=== PATIENT | female | born 1985 | race Caucasian/White ===

== ENCOUNTER 2023-05-15 08:06 | Inpatient (IN) | payer OTHER ==
[2023-05-14 12:53] LABS: Hematocrit 34.2 % (34.9-44.5); Hemoglobin 11.5 g/dL (12.0-15.5); Platelet Count 220 10x3/uL (150-450)
[2023-05-14 13:27] LABS: Syphilis Antibody Nonreactive (Nonreactive); Syphilis Antibody Index 0.08 S/CO (<1.00 Non-Reactive)
[2023-05-14 13:29] LABS: HBSAg Index 0.22 S/CO (0-0.99); Hep B Surf Ag Non-Reactive S/CO (NonReactive)
[2023-05-15] MEDS ORDERED: Oxytocin 30 units/NS 500 ML 500 ML IV SCH (08:27)
[2023-05-15] MEDS ORDERED: Famotidine/PF 20 mg/2ml Vial SLOW IVP PRN (08:27)
[2023-05-15] MEDS ORDERED: Lactated Ringer's 1,000 ML IV SCH (08:27)
[2023-05-15] MEDS ORDERED: Carboprost 250 MCG/ML AMP IM PRN (08:27)
[2023-05-15] MEDS ORDERED: Diphenoxylate HCl/Atropine Tablet PO PRN ×2 (08:27)
[2023-05-15] MEDS ORDERED: Methylergonovine 0.2 MG/ML VIAL IM PRN (08:27)
[2023-05-15] MEDS ORDERED: hydrALAZINE 20 MG/ML VIAL SLOW IVP PRN ×2 (08:27→09:48)
[2023-05-15] MEDS ORDERED: CEFAZOLIN 2 GM in Sodium Chloride 0.9% 100 ML IVPB SCH (08:27)
[2023-05-15] MEDS ORDERED: Promethazine HCl 25 MG/ML VIAL IM PRN ×2 (08:27→10:19)
[2023-05-15] MEDS ORDERED: Bicitra 30 ML UDCUP PO PRN (08:27)
[2023-05-15] MEDS ORDERED: Misoprostol 200 MCG TAB PR PRN (08:27)
[2023-05-15] MEDS ORDERED: Ondansetron PF 4 MG/2 ML Vial IVP PRN ×3 (08:27→10:19)
[2023-05-15 08:52] VITALS: BMI 28.5
[2023-05-15] MEDS ORDERED: Misoprostol 200 MCG TAB ONE (09:29)
[2023-05-15] MEDS ORDERED: Tranexamic Acid 1,000 MG/10 ML VIAL ONE (09:30)
[2023-05-15] MEDS ORDERED: Carboprost 250 MCG/ML AMP ONE (09:30)
[2023-05-15] MEDS ORDERED: Methylergonovine 0.2 MG/ML VIAL ONE (09:30)
[2023-05-15] MEDS ORDERED: Dexmedetomidine 200 MCG/2 ML VIAL ONE (09:36)
[2023-05-15] MEDS ORDERED: Morphine PF 10 MG/10 ML VIAL ONE (09:36)
[2023-05-15] MEDS ORDERED: Dexamethasone 4 mg/ml Vial ONE (09:38)
[2023-05-15] MEDS ORDERED: PHENYLEPHRINE-NS 100 MCG/ML 10 ML SYRINGE ONE (09:38)
[2023-05-15] MEDS ORDERED: Ondansetron PF 4 MG/2 ML Vial ONE ×2 (09:38→10:15)
[2023-05-15] MEDS ORDERED: Phenylephrine 10 MG/ML VIAL ONE ×2 (09:39)
[2023-05-15] MEDS ORDERED: Bisacodyl 10 MG SUPP PR PRN (09:48)
[2023-05-15] MEDS ORDERED: Simethicone Chewable 80 MG TAB PO PRN (09:48)
[2023-05-15] MEDS ORDERED: HYDROcodone/Acetaminophen 5/325 mg Tablet PO PRN ×2 (09:48)
[2023-05-15] MEDS ORDERED: Acetaminophen 325 MG TAB PO PRN (09:48)
[2023-05-15] MEDS ORDERED: Lanolin Ointment 7 GM TUBE TOP PRN (09:48)
[2023-05-15] MEDS ORDERED: Boostrix 0.5 ML (Tdap) VIAL (>/=7 yrs of age) IM ONE (09:48)
[2023-05-15] MEDS ORDERED: Lidocaine 2% MPF 10 ML AMP (For Epidural Use) ONE (10:15)
[2023-05-15] MEDS ORDERED: Oxytocin 10 UNITS/ML VIAL ONE ×2 (10:15→10:16)
[2023-05-15] MEDS ORDERED: Lidocaine 1% (PF) 30 ML VIAL ONE (10:15)
[2023-05-15] MEDS ORDERED: fentaNYL 50 mcg/mL 1 mL Vial SLOW IVP PRN (10:19)
[2023-05-15] MEDS ORDERED: HYDROmorphone 0.5 MG/0.5 ML SYRINGE SLOW IVP PRN (10:19)
[2023-05-15] MEDS ORDERED: Naloxone HCl 0.4 mg/ml Vial IVP PRN ×2 (10:19)
[2023-05-15] MEDS ORDERED: Promethazine HCl 25 MG SUPP PR PRN (10:19)
[2023-05-15] MEDS ORDERED: Naloxone HCl 0.4 mg/ml Vial IV PRN (10:19)
[2023-05-15] MEDS ORDERED: diphenhydrAMINE 50 MG/ML VIAL IVP PRN (10:19)
[2023-05-15] MEDS ORDERED: Moisturizing Cream (Eucerin) 113 GM JAR TOP PRN (10:19)
[2023-05-15] MEDS ORDERED: Meperidine HCl/PF 25 MG (1 mL) VIAL SLOW IVP PRN (10:19)
[2023-05-15] MEDS ORDERED: Communication Order-Pharmacy FS SCH (10:30)
[2023-05-15] MEDS ORDERED: Ketorolac Tromethamine 30 MG/ML VIAL IVP SCH (10:30)
[2023-05-15] MEDS ORDERED: Ibuprofen 800 MG TAB PO SCH (14:00)
[2023-05-15] MEDS: Ketorolac Tromethamine 30 MG/ML VIAL IVP PRN (18:27)
[2023-05-15] MEDS: Docusate 100 MG CAP PO SCH (21:50)
[2023-05-16] MEDS: Ketorolac Tromethamine 30 MG/ML VIAL IVP PRN ×2 (00:14→06:33)
[2023-05-16] MEDS: diphenhydrAMINE 25 MG CAP PO PRN ×2 (03:08→10:17)
[2023-05-16 03:20] LABS: Mean Corpuscular HGB CONC 33.3 g/dL (32.0-36.0); Mean Corpuscular Hemoglobin 30.2 pg (27.0-33.0); Mean Corpuscular Volume 90.6 fl (81.6-98.3); Mean Platelet Volume 10.9 fl (7.4-10.4); Platelet Count 206 10x3/uL (150-450); RBC Distribution Width 12.9 % (11.5-14.5); Red Blood Cell (RBC) Count 2.98 10x6/uL (3.90-5.03); White Blood Cell (WBC) Count 11.6 10x3/uL (3.5-10.5)
[2023-05-16] MEDS: Ferrous Sulfate 325 MG TAB PO SCH ×3 (07:13→20:57)
[2023-05-16] MEDS ORDERED: HYDROcodone/Acetaminophen 5/325 mg Tablet PO PRN (07:16)
[2023-05-16] MEDS: Prenatal Vitamin 1 TAB PO SCH (07:57)
[2023-05-16] MEDS: Docusate 100 MG CAP PO SCH ×2 (07:57→20:57)
[2023-05-16] MEDS: HYDROcodone/Acetaminophen 5/325 mg Tablet PO PRN ×4 (09:13→23:11)
[2023-05-16] MEDS: Ibuprofen 800 MG TAB PO SCH ×2 (14:22→20:57)
[2023-05-17] MEDS: HYDROcodone/Acetaminophen 5/325 mg Tablet PO PRN ×2 (03:52→08:10)
[2023-05-17] MEDS: Ibuprofen 800 MG TAB PO SCH (05:36)
[2023-05-17 08:00] VITALS: BP 120/69; TEMP 97.7
[2023-05-17] MEDS: Prenatal Vitamin 1 TAB PO SCH (08:01)
[2023-05-17] MEDS: Ferrous Sulfate 325 MG TAB PO SCH (08:01)
[2023-05-17] MEDS: Docusate 100 MG CAP PO SCH (08:01)
[2023-05-17] MEDS ORDERED: HYDROcodone/Acetaminophen 5/325 mg Tablet PO PRN (08:07)
== END 2023-05-17 12:50 | disposition home or self-care (01) | DRG 785 ==
LOC: CSHLD 08:06 → CSHPP 14:17
PROVIDERS: ADMIT Obstetrics & Gynecology; ATTEND Obstetrics & Gynecology
PROC: 10D00Z1 Extraction of Products of Conception, Low, Open Approach (ICD-10-PCS; principal; 2023-05-15)
PROC: 0UB70ZZ Excision of Bilateral Fallopian Tubes, Open Approach (ICD-10-PCS; 2023-05-15)
DX: O34.211 Maternal care for low transverse scar from previous cesarean delivery (principal); Z80.41 Family history of malignant neoplasm of ovary; Z37.0 Single live birth; Z3A.37 37 weeks gestation of pregnancy; Q51.818 Other congenital malformations of uterus; Z30.2 Encounter for sterilization
CPT/HCPCS: 36430; 85014; 85018; 85027; 85049; 86780; 86850; 86900; 86901; 87340; 88302; J1100; J1885; J2001; J2175; J2274; J2370; J2405; J2590; J3490; J7120

== ENCOUNTER 2023-05-17 19:09 | Inpatient (IN) | payer OTHER ==
[~2023-05-17 19:09] MED LIST: Iopamidol 370 76% 100 ML VIAL ONE
[2023-05-17] MEDS ORDERED: Morphine 4 MG/ML VIAL ONE (20:02)
[2023-05-17] MEDS ORDERED: Ondansetron PF 4 MG/2 ML Vial ONE (20:02)
[2023-05-17 20:09] LABS: #Monocytes 0.9 10x3/uL (0.0-1.1); #Neutrophils 10.2 10x3/uL (1.5-8.4); %Basophils 0.2 % (0.0-2.0); %Eosinophils 0.1 % (0.0-6.0); %Lymphocytes 7.1 % (18.0-47.0); %Monocytes 7.5 % (0.0-10.0); %Neutrophils 84.8 % (40.0-75.0); Hematocrit 29.5 % (34.9-44.5); Hemoglobin 10.1 g/dL (12.0-15.5); Mean Corpuscular HGB CONC 34.2 g/dL (32.0-36.0); Mean Corpuscular Hemoglobin 30.4 pg (27.0-33.0); Mean Corpuscular Volume 88.9 fl (81.6-98.3); Mean Platelet Volume 11.2 fl (7.4-10.4); Platelet Count 195 10x3/uL (150-450); RBC Distribution Width 13.2 % (11.5-14.5); Red Blood Cell (RBC) Count 3.32 10x6/uL (3.90-5.03)
[2023-05-17 20:27] LABS: ALT (SGPT) 12 U/L (8-55); AST (SGOT) 18 U/L (5-34); Albumin 3.2 g/dL (3.5-5.0); Alkaline Phosphatase 81 U/L (40-110); Anion Gap 12 mmol/L (10-20); BUN (Urea Nitrogen) 9 mg/dL (7.0-18.7); Bilirubin, Total 0.3 mg/dL (0.2-1.2); Calc. Creatinine Clearance 0 mL/min (70-130); Calcium 8.1 mg/dL (7.8-10.44); Carbon Dioxide 22 mmol/L (22-29); Chloride 107 mmol/L (98-107); Estimated GFR 112; Globulin 2.2 g/dL (2.4-3.5); Glucose 115 mg/dL (70-105); Potassium 3.7 mmol/L (3.5-5.1); Protein, Total 5.4 g/dL (6.0-8.3); Sodium 137 mmol/L (136-145)
[2023-05-17 21:08] LABS: SARS-CoV-2 NAA Rapid Test Not Detected (NotDetected)
[2023-05-17] MEDS ORDERED: Ketorolac Tromethamine 30 MG (1 mL) VIAL ONE (21:26)
[2023-05-17 22:12] LABS: Bilirubin Neg (Negative); Blood, Urine 50 (Negative); Clarity Clear (Clear); Glucose, Urine (Dipstick) Normal (Negative); Ketone, Urine Negative (Negative); Leukocyte Negative (Negative); Nitrite Negative (Negative); Protein, Urine (Dipstick) 15 mg/dl (Neg-Trace); Specific Gravity, Urine 1.005 (1.005-1.030); Urobilinogen Normal mg/dL (Less than 2)
[2023-05-17 22:36] LABS: Bacteria/HPF None Seen HPF (None Seen); CAUTI Indications for Culture Pelvic or flank pain; RBC/HPF 0-3 HPF (0-3); Squamous Epithelial 0-3 HPF (0-3); WBC/HPF 0-3 HPF (0-3)
[2023-05-17 22:37] LABS: Urine Culture Reflex No No
[2023-05-17] MEDS ORDERED: Gentamicin Sulfate 80 MG in Premix 1 BAG IVPB ONE (23:15)
[2023-05-17] MEDS ORDERED: Clindamycin/D5W 900 MG in Premix 1 BAG IVPB ONE (23:15)
[2023-05-18] MEDS ORDERED: diphenhydrAMINE 25 MG CAP PO PRN (01:06)
[2023-05-18] MEDS ORDERED: Bisacodyl 10 MG SUPP PR PRN (01:06)
[2023-05-18] MEDS ORDERED: hydrALAZINE 20 MG/ML VIAL SLOW IVP PRN (01:06)
[2023-05-18] MEDS ORDERED: Ondansetron PF 4 MG/2 ML Vial IVP PRN (01:06)
[2023-05-18] MEDS ORDERED: Acetaminophen 500 MG TAB PO PRN (01:06)
[2023-05-18] MEDS ORDERED: HYDROcodone/Acetaminophen 5/325 mg Tablet PO PRN (01:06)
[2023-05-18] MEDS ORDERED: Promethazine HCl 25 MG/ML VIAL IM PRN ×2 (01:06)
[2023-05-18] MEDS ORDERED: Docusate 100 MG CAP PO SCH (01:15)
[2023-05-18] MEDS ORDERED: Polyethylene Glycol 3350 17 GM Packet PO SCH (01:15)
[2023-05-18 01:20] VITALS: BMI 28.5
[2023-05-18] MEDS ORDERED: Simethicone Chewable 80 MG TAB PO SCH (01:30)
[2023-05-18] MEDS: HYDROcodone/Acetaminophen 5/325 mg Tablet PO PRN ×4 (01:58→20:05)
[2023-05-18] MEDS: Clindamycin/D5W 900 MG in Premix 1 BAG IVPB SCH ×3 (06:01→21:13)
[2023-05-18] MEDS: Ibuprofen 800 MG TAB PO SCH ×3 (06:02→21:13)
[2023-05-18] MEDS: Simethicone Chewable 80 MG TAB PO SCH ×6 (06:02→23:53)
[2023-05-18] MEDS: Prenatal Vitamin 1 TAB PO SCH (08:08)
[2023-05-18] MEDS: Ferrous Sulfate 325 MG TAB PO SCH (08:08)
[2023-05-18] MEDS: Docusate 100 MG CAP PO SCH ×2 (08:08→20:05)
[2023-05-18] MEDS: Gentamicin Sulfate 80 MG in Premix 1 BAG IVPB SCH ×3 (08:09→23:53)
[2023-05-18] MEDS ORDERED: Prenatal Vitamin 1 TAB PO SCH (09:00)
[2023-05-18] MEDS ORDERED: Ferrous Sulfate 325 MG TAB PO SCH (09:00)
[2023-05-18] MEDS: Ondansetron PF 4 MG/2 ML Vial IVP PRN (11:15)
[2023-05-18] MEDS: Polyethylene Glycol 3350 17 GM Packet PO SCH (20:05)
[2023-05-19] MEDS: Clindamycin/D5W 900 MG in Premix 1 BAG IVPB SCH ×3 (05:30→21:30)
[2023-05-19] MEDS: Ibuprofen 800 MG TAB PO SCH ×3 (05:30→21:30)
[2023-05-19] MEDS: Simethicone Chewable 80 MG TAB PO SCH ×5 (05:30→21:30)
[2023-05-19 07:43] LABS: Hematocrit 26.5 % (34.9-44.5); Mean Corpuscular Hemoglobin 30.9 pg (27.0-33.0); Mean Corpuscular Volume 91.1 fl (81.6-98.3); Mean Platelet Volume 11.6 fl (7.4-10.4); Platelet Count 195 10x3/uL (150-450); RBC Distribution Width 13.1 % (11.5-14.5); Red Blood Cell (RBC) Count 2.91 10x6/uL (3.90-5.03); White Blood Cell (WBC) Count 6.6 10x3/uL (3.5-10.5)
[2023-05-19] MEDS: Gentamicin Sulfate 80 MG in Premix 1 BAG IVPB SCH ×2 (07:48→17:33)
[2023-05-19 08:48] LABS: Band 33 % (5-11); Eosinophils 1 % (0-10); Lymphocytes 23 % (21-51); Reactive Lymphocytes 2 % (0-10)
[2023-05-19 08:49] LABS: Neutrophil 33 % (42-75)
[2023-05-19 08:50] LABS: Monocytes 8 % (0-10)
[2023-05-19 08:51] LABS: RBC Morph Comment Within Normal Limits
[2023-05-19 08:52] LABS: Dohle Bodies SLIGHT; Large Platelets SLIGHT (None Seen)
[2023-05-19 08:54] LABS: MDiff Complete? YES; Platelet Adequacy Comment Appears Adequate
[2023-05-19] MEDS: Docusate 100 MG CAP PO SCH ×2 (09:43→21:30)
[2023-05-19] MEDS: Prenatal Vitamin 1 TAB PO SCH (09:43)
[2023-05-19] MEDS: Ferrous Sulfate 325 MG TAB PO SCH (09:44)
[2023-05-19] MEDS: Polyethylene Glycol 3350 17 GM Packet PO SCH ×2 (09:44→21:30)
[2023-05-19] MEDS: HYDROcodone/Acetaminophen 5/325 mg Tablet PO PRN ×2 (09:49→16:11)
[2023-05-19] MEDS: Ondansetron PF 4 MG/2 ML Vial IVP PRN (09:49)
[2023-05-20] MEDS: Gentamicin Sulfate 80 MG in Premix 1 BAG IVPB SCH ×2 (00:16→08:36)
[2023-05-20] MEDS: Simethicone Chewable 80 MG TAB PO SCH ×3 (00:16→11:39)
[2023-05-20] MEDS: Ibuprofen 800 MG TAB PO SCH ×2 (05:37→14:01)
[2023-05-20] MEDS: Clindamycin/D5W 900 MG in Premix 1 BAG IVPB SCH (05:37)
[2023-05-20] MEDS: Ondansetron PF 4 MG/2 ML Vial IVP PRN (08:23)
[2023-05-20] MEDS: HYDROcodone/Acetaminophen 5/325 mg Tablet PO PRN (08:25)
[2023-05-20] MEDS: Prenatal Vitamin 1 TAB PO SCH (08:40)
[2023-05-20] MEDS: Ferrous Sulfate 325 MG TAB PO SCH (08:40)
[2023-05-20] MEDS ORDERED: Ondansetron ODT 4 MG TAB PO SCH (09:15)
[2023-05-20 11:05] VITALS: BP 119/58; TEMP 98.8
[2023-05-20] MEDS: Docusate 100 MG CAP PO SCH (11:39)
[2023-05-20] MEDS: Polyethylene Glycol 3350 17 GM Packet PO SCH (11:40)
== END 2023-05-20 14:25 | disposition home or self-care (01) | DRG 776 ==
LOC: CSHERS 19:09 → CSHPED 23:03
PROVIDERS: ADMIT Obstetrics & Gynecology; ATTEND Obstetrics & Gynecology
DX: O86.12 Endometritis following delivery (principal); O99.63 Diseases of the digestive system complicating the puerperium; K92.89 Other specified diseases of the digestive system; K59.00 Constipation, unspecified; Z11.52 Encounter for screening for COVID-19
CPT/HCPCS: 36415; 71275; 74177; 80053; 81001; 83605; 85025; 93005; J1580; J1885; J2270; J2405; J3490; Q0162; Q9967